=== PATIENT | female | born 1945 | race Caucasian/White ===

== ENCOUNTER 2017-09-09 12:30 | Emergency (ER) | payer BC, OTHER ==
[2017-09-09] MEDS ORDERED: Morphine INJ* 4 MG/ML 1 ML SYRINGE (NEW SYRINGE VERSION) IV ONE ×2 (12:45→13:52)
[2017-09-09 13:22] LABS: Hematocrit 43 % (35-47); Hemoglobin 14.7 g/dl (12.0-16.0); Mean Corpuscular HGB Conc 34 g/dl (31-36); Mean Corpuscular Hemoglobin 31 pg (27-31); Mean Corpuscular Volume 91 fL (80-97); Mean Platelet Volume 9.6 um3 (7.4-10.4); Platelet Count 286 10^3/ul (150-450); Red Cell Distribution Width 14 % (10.5-15); White Blood Count 12.8 10^3/ul (3.5-10.8)
[2017-09-09 13:25] LABS: ABS Basophils 0.1 10^3/ul (0-0.2); ABS Eosinophils 0.1 10^3/ul (0-0.6); ABS Lymphocytes 2.5 10^3/ul (1.0-4.8); ABS Neutrophils 8.3 10^3/ul (1.5-7.7); ABS Nucleated RBC 0 10^3/ul; Eosinophil % 0.8 % (0-6); Lymphocyte % 20.8 % (25-47); Nucleated Red Blood Cells % 0.1
[2017-09-09 13:33] LABS: INR 2.4 (0.77-1.02)
[2017-09-09 13:41] LABS: EGFR Non-African American 83.6 (>60)
[2017-09-09] MEDS ORDERED: Ondansetron INJ* 2 MG/ML VIAL IV ONE (13:52)
--- NOTE | 2017-09-09 14:10 | RAD ---
HISTORY: Dizziness, status post left breast surgery COMPARISONS: December 17, 2011 VIEWS: 2: Frontal and lateral views of the chest. FINDINGS: CARDIOMEDIASTINAL SILHOUETTE: The cardiomediastinal silhouette is normal. DAYSI: The daysi are normal. PLEURA: The costophrenic angles are sharp. No pleural abnormalities are noted. LUNG PARENCHYMA: The lungs are clear. ABDOMEN: The upper abdomen is clear. There is no subphrenic gas. BONES AND SOFT TISSUES: No bone or soft tissue abnormalities are noted. OTHER: None. IMPRESSION: NO ACTIVE CARDIOPULMONARY DISEASE.
--- NOTE | 2017-09-09 15:12 | RAD ---
INDICATION: Left breast carcinoma. Recent breast surgery at outside institution September 02, 2017 COMPARISON: There is no prior breast/chest wall imaging at [facility]. TECHNIQUE: Transverse and longitudinal scans of the left chest wall and breast were performed utilizing grayscale and color Doppler imaging. FINDINGS: There is a small linear hypoechoic structure at 10:00 which runs parallel to normal fascial planes and is likely a small seroma. At the surgical site at the at the 2:00 to 3:00 position and extending in a clockwise fashion to near the 10:00 position there is mixed echogenicity masslike appearing change which demonstrates no significant flow on Doppler interrogation. The history of recent breast surgery and the lack of vascularity suggests that this is a hematoma although without prior imaging and without more information regarding the nature of the surgery, the findings could also be related to residual tumor. Today's findings requires clinical evaluation and management and correlation with prior imaging studies. IMPRESSION: SUSPECT LARGE HEMATOMA LEFT BREAST (SEE ABOVE). FINDINGS DISCUSSED WITH THE EMERGENCY DEPARTMENT.
[2017-09-09] MEDS ORDERED: NS 0.9% 1000 ML*IV.FLUID IV ONE (15:38)
[2017-09-09 19:00] VITALS: BP 130/56
--- NOTE | 2017-09-09 19:04 | ED ---
Anival Owen Stephanie, scribed for Chen Carey MD on 09/09/17 at 1348 . Breast Complaint - HPI Summary HPI Summary: The pt is a 72 y/o F presenting to the ED with c/o breast pain since earlier this morning. Symptoms include hard swelling near the site of tissue removal and dizziness. 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 The pt denies drainage. The pt denies knowledge about the cancer spreading to lymph nodes. On April 28, 2017, tissue was removed from the pts breast. Pt was referred to Dr. Ami Krause, surgical oncologist who did the surgery for her. She has an appointment for follow up on September 20. Pt states her HR is slow at baseline. The pt is also on Atenolol. The pt states her L breast became very hard and swollen this morning. She denies drainage or erythema, fever, nausea, vomiting, CP and SOB. The pt states she felt like I was going to pass out this morning with the pain. Pt is on Xarelto after having a DVT in her right leg in Apr 2017. She did not have trauma to the breast after surgery. - History of Current Complaint Hx Obtained From: Patient Breast Chief Complaint: Pain, Breast - L, Left, Inflammation Onset/Duration: Started Hours Ago, Still Present Timing: Constant Breast Pain Aggravating Factors: Nothing Breast Pain Alleviating Factors: Nothing Breast Associated Signs/Symptoms: Other: - recent ductal carcinoma removal on - Allergy/Home Medications Allergies/Adverse Reactions: Allergies Allergy/AdvReac Type Severity Reaction Status Date / Time Sulfa (Sulfonamide Allergy Rash Verified 09/09/17 13:02 Antibiotics) Home Medications: Home Medications Ascorbic Acid TAB* [Vitamin C TAB*] 500 mg PO BID 09/09/17 [History Confirmed 09/09/17] Atenolol TAB* [Tenormin TAB* 50 MG] 50 mg PO DAILY 09/09/17 [History Confirmed 09/09/17] Calcium Carbonate [Calcium] 500 mg PO BID 09/09/17 [History Confirmed 09/09/17] Ferrous Gluconate [Fergon] 240 mg PO DAILY 09/09/17 [History Confirmed 09/09/17] Fluticasone HFA 110 mcg(NF) [Flovent HFA 110 mcg(NF)] 2 puff INH BID 09/09/17 [ History Confirmed 09/09/17] Furosemide TAB* [Lasix TAB*] 40 mg PO DAILY 09/09/17 [History Confirmed 09/09/17 ] LoraTADine TAB(NF) [Claritin 10 MG TAB(NF)] 10 mg PO DAILY 09/09/17 [History Confirmed 09/09/17] Omeprazole CAP* [Prilosec CAP* 20 MG] 40 mg PO DAILY 09/09/17 [History Confirmed 09/09/17] Oxybutynin TAB* [Ditropan TAB*] 5 mg PO BID 09/09/17 [History Confirmed 09/09/17 ] Quinapril (NF) [Accupril (NF)] 20 mg PO BID 09/09/17 [History Confirmed 09/09/17 ] Rivaroxaban TAB(*) [Xarelto 10 mg (*)] 20 mg PO DAILY 09/09/17 [History Confirmed 09/09/17] Vitamin E CAP* 400 unit PO BID 09/09/17 [History Confirmed 09/09/17] PMH/Surg Hx/FS Hx/Imm Hx Previously Healthy: No Endocrine/Hematology History: Reports: Hx Anemia, Other Endocrine/Hematological Disorders - DVT right leg 04/2017 Cardiovascular History: Reports: Hx Hypertension Respiratory History: Reports: Hx Chronic Obstructive Pulmonary Disease (COPD) EENT History: Denies: Hx Deafness - Cancer History Cancer Type, Location and Year: breast cancer 08/2017 - Surgical History Surgery Procedure, Year, and Place: hysterectomy Infectious Disease History: No Infectious Disease History: Denies: Traveled Outside the [place] in Last 30 Days - Family History Known Family History: Positive: Hypertension, Other - breast cancer metastatic to bone in mother - Social History Occupation: Retired Lives: With Family Alcohol Use: None Hx Substance Use: No Substance Use Type: Reports: None Hx Tobacco Use: No Smoking Status (MU): Never Smoked Tobacco Have You Smoked in the Last Year: No Review of Systems Negative: Fever Positive: Other - left breast pain and swelling Respiratory: Negative Gastrointestinal: Negative Positive: Edema - L breast, Other - pain in L breast Positive: Bruising - green and yellow, not extensive. Neurological: Other - dizziness Psychological: Normal All Other Systems Reviewed And Are Negative: Yes Physical Exam - Summary Physical Exam Summary: Appearance: Chronically ill-appearing. The pt is in severe pain distress. Well- nourished Skin: Warm, color reflects adequate perfusion, yellow and green bruising to left breast, 3cm purple streak of ecchymosis lateral left breast Head: Normal Head/Face inspection Eyes: Conjunctiva clear ENT: Normal inspection Neck: Supple, no nodes, no JVD. Respiratory: Lungs clear, Normal breath sounds, no respiratory distress Cardio: RRR, No murmur, pulses normal, brisk capillary refill Abdomen: soft, nontender Bowel sounds: present Musculoskeletal: Strength Intact/ ROM intact. No calf tenderness. No edema. L breast has sterri-strips in the L lower outer quadrant of the breast that are dry and intact. There is old bruising over the L breast as above. L breast is swollen, enlarged and rock hard to touch, indurated, but it is not extensively bruised. There is no drainage from the nipple. Psychological: Normal Neuro: Alert, muscle tone normal, no focal deficit. Triage Information Reviewed: Yes Vital Signs On Initial Exam: Initial Vitals Temp Pulse Resp BP Pulse Ox 98.4 F 51 24 154/61 100 09/09/17 12:35 09/09/17 12:35 09/09/17 12:35 09/09/17 12:35 09/09/17 12:35 Vital Signs Reviewed: Yes Diagnostics - Vital Signs Vital Signs Temp Pulse Resp BP Pulse Ox 09/09/17 13:01 18 09/09/17 13:00 20 09/09/17 12:44 142/71 09/09/17 12:43 52 100 09/09/17 12:35 98.4 F 51 24 154/61 100 - Laboratory Lab Results: Lab Results 09/09/17 09/09/17 Range/Units 13:00 13:00 WBC 12.8 H (3.5-10.8) 10^3/ul RBC 4.70 (4.0-5.4) 10^6/ul Hgb 14.7 (12.0-16.0) g/dl Hct 43 (35-47) % MCV 91 (80-97) fL MCH 31 (27-31) pg MCHC 34 (31-36) g/dl RDW 14 (10.5-15) % Plt Count 286 (150-450) 10^3/ul MPV 9.6 (7.4-10.4) um3 Neut % (Auto) 69.3 (38-83) % Lymph % (Auto) 20.8 L (25-47) % Alpine % (Auto) 8.5 H (0-7) % Eos % (Auto) 0.8 (0-6) % Baso % (Auto) 0.6 (0-2) % Absolute Neuts (auto) 8.3 H (1.5-7.7) 10^3/ul Absolute Lymphs (auto) 2.5 (1.0-4.8) 10^3/ul Absolute Monos (auto) 1.0 H (0-0.8) 10^3/ul Absolute Eos (auto) 0.1 (0-0.6) 10^3/ul Absolute Basos (auto) 0.1 (0-0.2) 10^3/ul Absolute Nucleated RBC 0 10^3/ul Nucleated RBC % 0.1 ESR Pending INR (Anticoag Therapy) 2.40 H (0.77-1.02) Result Diagrams: 09/09/17 13:00 09/09/17 13:00 Lab Statement: Any lab studies that have been ordered have been reviewed, and results considered in the medical decision making process. - Radiology CXR Xray Interpretation: No Acute Changes Radiology Interpretation Completed By: Radiologist - NO ACTIVE CARDIOPULMONARY DISEASE. ED physician has reviewed this report. - EKG 14:09 Cardiac Rate: Bradycardia EKG Rhythm: Sinus Bradycardia - [address] Segment: Non-Specific Ectopy: None EKG Interpretation: nml AVIVCT, nml QTc, and axis (9). EKG Comparison: Other - no prior to compare - Additional Comments Diagnostic Additional Comments: Chest US reveals: SUSPECT LARGE HEMATOMA LEFT BREAST. FINDINGS DISCUSSED WITH THE EMERGENCY PHYSICIAN. Re-Evaluation - Re-Evaluation First Eval Re-Evaluation Time: 15:05 Change: Improved - The pt states she is more comfortable than when she first arrived at the ED. Her pain is rated as a 6 in severity. Second Eval Re-Evaluation Time: 19:00 Change: Unchanged - pain is returning, swelling is unchanged. Pt ambulated to without assistance Breast Pain Course/Dx - Course Course Of Treatment: At 15:06, ED physician spoke to Dr. Wyman, radiologist who communicated that the pt has a large mass in L breast that is possibly a hematoma, that it does not have the appearance of an abscess. At 15:10, ED physician spoke to Dr. Krause who requests the pt be transferred from [facility] to ED at [facility]. At 16:00, the pt's BP is 130/53. accepted the pt into [facility] ED. - Differential Diagnoses Differential Diagnosis/HQI/PQRI: Breast Abscess, Breast Mass, Other: - breast cancer, breast hematoma - Diagnoses Provider Diagnoses: Breast cancer, Breast hematoma Is Visit Related: No - Provider Notifications Discussed Care Of Patient With: Saul Wyman Time Discussed With Above Provider: 15:06 - probable breast hematoma, less likely abscess, possible malignancy Instructed by Provider To: Transfer Discharge - Sign-Out/Discharge Documenting (check all that apply): Discharge - Discharge Plan Condition: Stable Disposition: TRANS HIGHER LVL OF CARE FAC Referrals: Lc Kilpatrick MD [Primary Care Provider] - - Billing Disposition and Condition Condition: STABLE Disposition: EMTALA The documentation as recorded by the Anival sy Stephanie accurately reflects the service I personally performed and the decisions made by , Chen Carey MD.
[2017-09-09] MEDS ORDERED: HYDROmorphone INJ* 2 MG/ML CARPUJECT SYRINGE IV SLOW PU ONE (19:08)
[2017-09-09 19:23] LABS: Urine Appearance Cloudy; Urine Blood Negative (Negative); Urine Color Amber; Urine Ketones 1+ (Negative); Urine Protein 1+(30 mg/dL) (Negative); Urine Specific Gravity 1.025 (1.010-1.030); Urine Urobilinogen Positive (Negative)
== END 2017-09-09 19:45 | disposition short-term general hospital (02) ==
LOC: ED 12:30
DX: C50.912 Malignant neoplasm of unspecified site of left female breast (principal); N64.89 Other specified disorders of breast; Z86.718 Personal history of other venous thrombosis and embolism
CPT/HCPCS: 36415; 71046; 76604; 80053; 81003; 81015; 83605; 83735; 84443; 84484; 85025; 85610; 85652; 85730; 86140; 87086; 93005; 99284; J1170; J2270; J2405